=== PATIENT | male | born 1950 ===

== ENCOUNTER 2017-11-14 17:28 | Emergency (ER) | payer MEDICARE, OTHER ==
[2017-11-14 18:01] LABS: #Basophils 0.1 thou/uL (0.0-0.2); #Lymphocytes 2.4 thou/uL (1.20-3.40); #Monocytes 1.1 thou/uL (0.11-0.59); #Neutrophils 7.8 thou/uL (1.40-6.50); %Basophils 0.7 % (0.0-1.0); %Eosinophils 0.2 % (0.0-10.0); %Lymphocytes 21.4 % (21.0-51.0); %Monocytes 9.7 % (0.0-10.0); Hemoglobin 13.8 g/dL (14.0-18.0); Mean Corpuscular HGB CONC 36.1 g/dL (32.0-36.0); Mean Corpuscular Hemoglobin 28.6 pg (27.0-31.0); Mean Corpuscular Volume 79.4 fl (80.0-94.0); Mean Platelet Volume 8.1 fL (7.4-10.4); Platelet Count 167 thou/uL (130-400); RBC Distribution Width 13.3 % (11.5-14.5); Red Blood Cell (RBC) Count 4.82 mill/uL (4.70-6.10); White Blood Cell (WBC) Count 11.4 thou/uL (4.8-10.8)
[2017-11-14 18:10] LABS: ALT (SGPT) 17 U/L (8-55); AST (SGOT) 26 U/L (5-34); Albumin 3.2 g/dL (3.4-4.8); Alkaline Phosphatase 131 U/L (40-150); Anion Gap 14 mmol/L (10-20); BUN (Urea Nitrogen) 21 mg/dL (8.4-25.7); Bilirubin, Total 1.2 mg/dL (0.2-1.2); Calc. Creatinine Clearance 0 mL/min (70-130); Carbon Dioxide 21 mmol/L (23-31); Chloride 100 mmol/L (98-107); Estimated GFR-MDRD 63; Globulin 4.3 g/dL (2.4-3.5); Glucose 178 mg/dL (80-115); Potassium 4.2 mmol/L (3.5-5.1); Protein, Total 7.5 g/dL (5.8-8.1); Sodium 131 mmol/L (136-145)
[2017-11-14 18:12] LABS: CKMB 0.8 ng/mL (0-6.6); Troponin I Less than 0.010 ng/mL (< 0.028)
[2017-11-14] MEDS ORDERED: Azithromycin 250 MG TAB ONE (19:18)
[2017-11-14] MEDS ORDERED: predniSONE 20 MG TAB ONE (19:24)
--- NOTE | 2017-11-14 19:30 | CT ---
CT ANGIO CHEST WITH CONTRAST: 11/14/2017 COMPARISON: 03/05/2016 TECHNIQUE: Axial slices were acquired and then coronal and oblique coronal reformations were done. FINDINGS: There is very good filling of the pulmonary arteries, with no evidence for pulmonary emboli. There i s no sign of aortic aneurysm or dissection in the thoracic region. Coronary artery calcifications ar e suggested. There is no sign of pericardial fluid. Chronic fibrotic changes and cavitary changes are present throughout the lungs, as on the prior study . The large cavitary area in the left upper lobe apex is about the same in size, measuring approxima tely 8.4 x 4.3 cm. Chronic changes in the right upper lobe have improved somewhat since 2016. Those in the superior segment of the left lower lobe have worsened slightly. The appearance of shifting c hronic appearing infiltrates suggests chronic infectious disease, such as atypical mycobacteria infec tions. There are no effusions. There is no sign of a mediastinal mass. While there are some small nodes, no extremely large ones are noted. The scans only went a short ways into the upper abdomen, and little can be said about the area scanne d. IMPRESSION: 1. No evidence of pulmonary embolism. Coronary arteriosclerosis is suggested. 2. Severe chronic changes throughout the lungs bilaterally, including a large left upper lobe cavity . The cavity has not changed much. Right upper lobe changes have improved since 2016, and superior segment left lower lobe changes have advanced slightly. POS: HOME
--- NOTE | 2017-11-14 19:43 | RAD ---
CHEST TWO VIEWS: 11/14/2017 COMPARISON: No prior chest x-ray is available for comparison, but I did review the 2016 CT angio of the chest. FINDINGS: The left upper lobe cavity is visible, as well as some chronic parenchymal changes in the left upper lobe and in the periphery of the right upper lobe. The lung bases are clear in comparison. There ar e no large effusions. The heart size is normal. The trachea is midline. IMPRESSION: Chronic upper lobe changes. See CT report to follow. POS: HOME
== END 2017-11-14 20:20 | disposition home or self-care (01) ==
LOC: BURERS 17:28
DX: J44.1 Chronic obstructive pulmonary disease with (acute) exacerbation (principal); I25.2 Old myocardial infarction; E11.9 Type 2 diabetes mellitus without complications; I25.10 Atherosclerotic heart disease of native coronary artery without angina pectoris; F17.210 Nicotine dependence, cigarettes, uncomplicated
CPT/HCPCS: 71046; 71275; 80053; 82553; 83880; 84484; 85025; 85379; 93005; 96360; 96361; J7506